=== PATIENT | male | born 1990 | race American Indian/Alaskan Native ===

== ENCOUNTER 2021-09-11 14:51 | Emergency (ER) | payer BC ==
[2021-09-11 14:57] VITALS: BP 137/93
[2021-09-11] MEDS ORDERED: IBUPROFEN 800 MG TAB PO ONE (15:09)
--- NOTE | 2021-09-11 15:09 | Emergency Department Report ---
Minor Respiratory - HPI Chief Complaint: Chest Pain Stated Complaint: POSITIVE COVID TEST/CHEST PAIN Time Seen by Provider: 09/11/21 15:07 Duration: 2 Days Pain Location: Chest Severity: mild Minor Respiratory: Yes Able to Tolerate Fluids, Yes Chest Pain, No Rhinorrhea, No Sore Throat, No Ear Pain, No Cough, No Sick Contacts, No Hemoptysis, No Shortness of Breath, No Fever Other History: 31 yo dx with covid 6 days ago. no cough. no fever or chills. developed pain with deep breath today. his job told him he should be checked. pt non ill; non toxic on exam; ambulatory; taking po ED Review of Systems ROS: Stated complaint: POSITIVE COVID TEST/CHEST PAIN Other details as noted in HPI Comment: All other systems reviewed and negative ED Past Medical Hx - Past Medical History Previous Medical History?: No - Surgical History Past Surgical History?: Yes Additional Surgical History: left arm - Family History Family history: no significant - Social History Smoking Status: Current Every Day Smoker Substance Use Type: Alcohol - Medications Home Medications: Home Medications Medication Instructions Recorded Confirmed Last Taken Type Ibuprofen [Motrin] 800 mg PO Q8HR PRN #30 tablet 09/11/21 Unknown Rx Minor Respiratory Exam - Exam General: Vital signs noted. No distress. Alert and acting appropriately. HEENT: Yes Moist Mucous Membranes, No Pharyngeal Erythema, No Pharyngeal Exudates, No Rhinorrhea, No Conjuctival Injection, No Frontal Tenderness, No Maxillary Tenderness Ear: Neither TM Bulge, Neither TM Erythema, Neither EAC Pain, Neither EAC Discharge Neck: Yes Supple, No Adenopathy Lungs: Yes Good Air Exchange, No Wheezes, No Ronchi, No Stridor, No Cough, No Labored Respirations, No Retractions, No Use of Accessory Muscles, No Other Abnormal Lung Sounds Heart: Yes Regular, No Murmur Abdomen: Yes Normal Bowel Sounds, No Tenderness, No Peritoneal Signs Skin: No Rash, No Edema Neurologic: Alert and oriented, no deficits. Musculoskeletal: Unremarkable. ED Course Vital Signs 09/11/21 14:56 Temperature 97.9 F Pulse Rate 82 Respiratory 18 Rate Blood Pressure 137/93 [Right] O2 Sat by Pulse 100 Oximetry ED Medical Decision Making - EKG Data -: EKG Interpreted by Me EKG shows normal: sinus rhythm Rate: normal - EKG Data When compared to previous EKG there are: no significant change Interpretation: no acute changes - Medical Decision Making Vital Signs 09/11/21 14:56 Temperature 97.9 F Pulse Rate 82 Respiratory 18 Rate Blood Pressure 137/93 [Right] O2 Sat by Pulse 100 Oximetry pleuritic cp of covid no tachycardia no hypotension no fever or chills pain with deep breath no sob ambulatory taking po dc home with dc plan of care including meds, diet, activity and follow up. Pt verbalizes understanding of plan of care. - Differential Diagnosis COVID Critical care attestation.: If time is entered above; I have spent that time in minutes in the direct care of this critically ill patient, excluding procedure time. ED Disposition Clinical Impression: COVID, Pleuritic chest pain Disposition: HOME / SELF CARE / HOMELESS Is pt being admited?: No Does the pt Need Aspirin: No Condition: Stable Instructions: COVID-19 Frequently Asked Questions, COVID-19: How to Protect Yourself and Others - CDC, Costochondritis Additional Instructions: MED ORDERED TODAY STAY WELL HYDRATED FOLLOW UP WITH PCP IN 48 HOURS REFERRAL BELOW Prescriptions: Ibuprofen [Motrin] 800 mg PO Q8HR PRN #30 tablet PRN Reason: Pain, Moderate (4-6) Referrals: MILA HENDRIX MD [Staff Physician] - 3-5 Days Time of Disposition: 15:16
--- NOTE | 2021-09-12 13:08 | Electrocardiograph Report ---
[facility] Test Date: 2021-09-11 Test Time: 15:11:45 Pat Name: BECCA SHAH Department: Room: Gender: M [employer] Person: RUY : 1990 Requested By: MARYAN IZQUIERDO Order Number: [id number] Reading MD: Moustapha Carlos Measurements Intervals [place] Rate: 55 P: -24 IN: 146 QRS: 58 QRSD: 93 T: 36 QT: 450 QTc: 429 Interpretive Statements Sinus bradycardia Early repolarization ST changes No previous ECG available for comparison Electronically Signed On 09-12-2021 13:08:15 EST by Moustapha Carlos
== END 2021-09-11 16:22 | disposition home or self-care (01) ==
LOC: ED 14:51
DX: U07.1 COVID-19 (principal); R07.9 Chest pain, unspecified; Z98.890 Other specified postprocedural states; F17.200 Nicotine dependence, unspecified, uncomplicated
CPT/HCPCS: 93005; 99282